=== PATIENT | female | born 1945 | race Caucasian/White ===

== ENCOUNTER → 2017-05-31 | Outpatient (CLI) | payer MEDICARE, OTHER ==
[~2017-05-31] MED LIST: ADULT LOW DOSE81 MG PO; AMLODIPINE BESY10 MG PO; ANXIETY; ASPIRIN325 PO; ATIVAN1 MG PO; AUGMENTIN 875875 MG PO; BISOPROLOL FUMA10 MG PO; BYSTOLIC 5 MG5 M1 PO; CARDIZEM30 MG PO; CHLORTHALIDONE25 MG PO; COLACE100 MG PO; COZAAR 50 MG TA50 M2 PO; DOXYCYCLINE 10100 MG PO; FENOFIBRATE160 MG PO; FLUZONE QU IM; GABAPENTIN 100100 MG PO; GENTAMICIN 0.1%15 G2 TOP; GLUCOPHAGE850 MG PO; GLUCOTROL5 MG PO; HYDRALAZINE 2525 MG PO; HYDROCODONE-AP1 EAC6 PO; KEFLEX500 MG PO; KLOR-CON 1010 MEQ PO; LEVOFLOXACIN750 MG PO; LEVOTHYROXIN0.025 MG PO; LIPITOR10 MG PO; LISINOPRIL10 MG PO; LOSARTAN POTAS100 MG PO; METFORMIN HCL500 MG PO; MILK OF MA2400 MG/10 PO; MIRALAX17 GM PO; MIRALAX255 GM PO; NITROFURANTOIN100 MG PO; NORCO 5-325 TA1 EACH PO; NORVASC10 MG PO; OXYBUTYNIN 5 MG5 M2 PO; OXYCODONE HCL 55 MG PO; SENNA LAX8.6 MG PO; SYNTHROID25 MC1 PO; TRIAMCINOLONE A80 G2 TOP; VANCOMYCIN HCL1 GM IV; VISTARIL 25 MG25 M1 PO; VITAMIN D50000 UNIT PO; XARELTO10 MG PO; XARELTO20 MG PO; ZOLOFT50 MG PO
== END ==
LOC: M.RAD 13:38
DX: Z12.31 Encounter for screening mammogram for malignant neoplasm of breast (principal)

== ENCOUNTER 2017-09-20 11:21 | Emergency (ER) | payer MEDICARE, OTHER ==
[~2017-09-20] VITALS: Ht 154.9 cm; Wt 98.9 kg
[~2017-09-20 11:21] MED LIST changes: -CHLORTHALIDONE25 MG PO; -GENTAMICIN 0.1%15 G2 TOP; -GLUCOPHAGE850 MG PO; -GLUCOTROL5 MG PO; -KLOR-CON 1010 MEQ PO; -TRIAMCINOLONE A80 G2 TOP
[2017-09-20 11:51] LABS: URINE BILIRUBIN NEGATIVE (Negative); URINE BLOOD NEGATIVE (Negative); URINE CLARITY CLEAR; URINE COLOR YELLOW; URINE GLUCOSE-RANDOM 3+ (Negative); URINE KETONES NEGATIVE (Negative); URINE LEUKOCYTES-REFLEX NEGATIVE (Negative); URINE PROTEIN NEGATIVE (Negative); URINE UROBILINOGEN 0.2 E.U./dl (0.2-1.0)
[2017-09-20 11:52] LABS: URINE NITRITE-REFLEX POSITIVE (Negative)
[2017-09-20 11:53] LABS: ABSOLUTE BASOPHILS 0.2 thou/uL (0.0-0.2); ABSOLUTE EOSINOPHILS 0.1 thou/uL (0.0-0.7); ABSOLUTE LYMPHOCYTES 1.9 thou/uL (0.8-5.3); ABSOLUTE MONOCYTES 0.6 thou/uL (0.0-1.2); ABSOLUTE NEUTROPHILS 8.4 thou/uL (1.6-8.1); BASOPHILS 1.4 %; EOSINOPHILS 0.8 %; HEMATOCRIT 46.7 % (37.0-47.0); HEMOGLOBIN 15.4 gm/dL (12.0-15.0); LYMPHOCYTES 17.1 %; MCH 29.3 pg (26.0-34.0); MCV 88.7 fL (80.0-100.0); MONOCYTES 5.2 %; MPV 10.3 fl. (7.2-11.1); NUCLEATED RBCS 0 /100WBC; PLATELET COUNT* 271 thou/uL (150-400); POLYS 75.5 %; RBC 5.27 mil/uL (4.20-5.00); RDW-CV 13.8 % (10.5-14.5); WBC 11.1 thou/uL (4.0-11.0)
[2017-09-20 11:56] LABS: CASTS None Seen /LPF (None Seen); CRYSTALS None Seen /LPF (None Seen); MUCUS 0-3 Light strn/LPF (None Seen); SQUAMOUS 0-3 Few /LPF (0-3); URINE RBC 0-2 Rare /HPF (0-2); URINE WBC-REFLEX 6-15 Few /HPF (0-5)
[2017-09-20 12:12] LABS: APTT 32.9 Seconds (25.0-31.3); INR 1.3; PROTIME 12.3 Seconds (9.20-11.50)
[2017-09-20 12:15] LABS: CALCIUM 9.1 mg/dL (8.5-10.1); CREATININE 1.9 mg/dL (0.6-1.3); POTASSIUM 3.7 mmol/L (3.5-5.1)
[2017-09-20 12:30] LABS: TOTAL BILIRUBIN 0.8 mg/dL (<0.1-1.0)
[2017-09-20 12:31] LABS: TOTAL PROTEIN 7.4 g/dL (6.4-8.2)
[2017-09-20] MEDS ORDERED: GLUCOPHAGE850 MG PO (13:28)
[2017-09-20] MEDS ORDERED: GLUCOTROL5 MG PO (13:28)
[2017-09-20 14:13] VITALS: BP 121/73
--- NOTE | 2017-09-20 15:22 | EKG ---
[place] [address] ELECTROCARDIOGRAM REPORT Name: ANGIE MARROQUIN Room: [facility]#: [id number] Admission: 09/20/17 Attend Phys: Discharge: 09/20/17 Date of : 47 Report #: [id number] THIS REPORT FOR: //name// [facility] ED Test Date: 2017-09-20 Test Time: 11:49:52 Pat Name: ANGIE MARROQUIN Department: Room: Gender: F Managed Care Specialist: Lindsay FELDER : 1945 Requested By: Cristobal Lew Order Number: [id number] MD: Ryan Coto Measurements Intervals [place] Rate: 61 P: 0 ND: 184 QRS: 73 QRSD: 157 T: 198 QT: 463 QTc: 467 Interpretive Statements Ventricular-paced complexes No further analysis attempted due to paced rhythm Baseline wander in lead(s) V6 Electronically Signed On 09-20-2017 15:21:49 CDT by Ryan Coto [email or web address] <ELECTRONICALLY SIGNED> By: Ryan Coto MD, [facility] 09/20/17 1521 1149 1149 Ryan Coto MD, [facility] /EPI
== END 2017-09-20 14:14 | disposition home or self-care (01) ==
LOC: M.ERS 11:21
PROVIDERS: Family Medicine
DX: E11.65 Type 2 diabetes mellitus with hyperglycemia (principal); I10 Essential (primary) hypertension; Z96.651 Presence of right artificial knee joint; Z90.710 Acquired absence of both cervix and uterus; Z90.49 Acquired absence of other specified parts of digestive tract; Z85.51 Personal history of malignant neoplasm of bladder; Z91.041 Radiographic dye allergy status

== ENCOUNTER 2018-02-16 13:54 | Inpatient (IN) | payer MEDICARE, OTHER ==
[~2018-02-16] VITALS: Ht 157.5 cm; Wt 97.5 kg
[~2018-02-16 13:54] MED LIST changes: +GLUCOPHAGE850 MG PO; +GLUCOTROL5 MG PO
[2018-02-16 14:04] VITALS: BP 150/83
[2018-02-16 14:45] LABS: ABSOLUTE BASOPHILS 0.1 thou/uL (0.0-0.2); ABSOLUTE EOSINOPHILS 0.2 thou/uL (0.0-0.7); ABSOLUTE LYMPHOCYTES 2.9 thou/uL (0.8-5.3); ABSOLUTE MONOCYTES 0.8 thou/uL (0.0-1.2); ABSOLUTE NEUTROPHILS 8.3 thou/uL (1.6-8.1); BASOPHILS 1.2 %; EOSINOPHILS 1.4 %; HEMATOCRIT 45.5 % (37.0-47.0); HEMOGLOBIN 14.8 gm/dL (12.0-15.0); LYMPHOCYTES 23.7 %; MCH 27.9 pg (26.0-34.0); MCHC 32.5 g/dL (28.0-37.0); MCV 85.9 fL (80.0-100.0); MONOCYTES 6.6 %; MPV 9.1 fl. (7.2-11.1); NUCLEATED RBCS 0 /100WBC; PLATELET COUNT* 316 thou/uL (150-400); POLYS 67.1 %; RDW-CV 14.8 % (10.5-14.5); WBC 12.4 thou/uL (4.0-11.0)
[2018-02-16 14:54] LABS: ANION GAP 10 mmol/L (7-16); BUN 31 mg/dL (7-18); CALCIUM 9.5 mg/dL (8.5-10.1); CHLORIDE 103 mmol/L (98-107); CO2 26 mmol/L (21-32); CREATININE 1.2 mg/dL (0.6-1.3); GLUCOSE 108 mg/dL (70-99); POTASSIUM 3.8 mmol/L (3.5-5.1); SODIUM 139 mmol/L (136-145)
[2018-02-16 14:57] LABS: APTT 33.8 Seconds (25.0-31.3); INR 1.2; PROTIME 12.2 Seconds (9.20-11.50)
[2018-02-16 15:07] LABS: URINE BILIRUBIN NEGATIVE (Negative); URINE BLOOD NEGATIVE (Negative); URINE CLARITY CLEAR; URINE COLOR YELLOW; URINE GLUCOSE-RANDOM NEGATIVE (Negative); URINE KETONES NEGATIVE (Negative); URINE LEUKOCYTES-REFLEX 1+ (Negative); URINE NITRITE-REFLEX POSITIVE (Negative); URINE PROTEIN TRACE (Negative); URINE UROBILINOGEN 0.2 E.U./dl (0.2-1.0)
[2018-02-16 15:13] LABS: ALBUMIN 3.7 g/dL (3.4-5.0); ALKALINE PHOSPHATASE 74 U/L (46-116); CK-MB MASS 1.8 ng/mL (<0.5-3.6); NT-PRO BRAIN NAT PEPTIDE 1296 pg/mL (<300); SGOT 16 U/L (15-37); SGPT 15 U/L (30-65); TOTAL BILIRUBIN 0.6 mg/dL (<0.1-1.0); TOTAL PROTEIN 8.5 g/dL (6.4-8.2); TROPONIN-I LEVEL <0.06 ng/mL (<0.06)
[2018-02-16 15:15] LABS: BACTERIA-REFLEX >30 Many /HPF (None Seen); SQUAMOUS 4-10 Moderate /LPF (0-3); URINE RBC None Seen /HPF (0-2); URINE WBC-REFLEX 6-15 Few /HPF (0-5)
[2018-02-16 15:16] LABS: CASTS None Seen /LPF (None Seen); CRYSTALS None Seen /LPF (None Seen); MUCUS None Seen strn/LPF (None Seen)
--- NOTE | 2018-02-16 16:36 | EKG ---
[place] [address] ELECTROCARDIOGRAM REPORT Name: LOPEZANGIE Gonzalez Room: [place] [address] ADM IN [facility].#: [id number] Admission: 02/16/18 Attend Phys: Perez White MD Discharge: Date of : 47 Report #: [id number] THIS REPORT FOR: //name// [facility] ED Test Date: 2018-02-16 Test Time: 14:35:11 Pat Name: ANGIE MARROQUIN Department: Room: [facility] Gender: F Supervisory Investigative Specialist: : 1945 Requested By: Cristobal Lew Order Number: [id number] MD: Ryan Coto Measurements Intervals [place] Rate: 60 P: 0 CA: 161 QRS: 74 QRSD: 146 T: 121 QT: 519 QTc: 519 Interpretive Statements Ventricular-paced complexes No further analysis attempted due to paced rhythm Baseline wander in lead(s) I,II,aVR Compared to ECG 09/20/2017 11:49:52 No significant changes Electronically Signed On 02-16-2018 16:36:37 CDT by Ryan Coto [email or web address] <ELECTRONICALLY SIGNED> By: Ryan Coto MD, [facility] 02/16/18 1636 1435 1435 Ryan Ctoo MD, [facility] /EPI
--- NOTE | 2018-02-16 17:00 | NUR ---
PT TO CT
[2018-02-16 17:53] VITALS: BP 174/77
[2018-02-16 20:15] VITALS: BP 117/61
[2018-02-16] MEDS ORDERED: GENTAMICIN 0.1%15 G2 TOP (20:29)
[2018-02-16] MEDS ORDERED: METFORMIN HCL500 MG PO (20:45)
[2018-02-16] MEDS ORDERED: KLOR-CON 1010 MEQ PO (20:46)
[2018-02-16] MEDS ORDERED: OXYBUTYNIN 5 MG5 M2 PO (20:47)
[2018-02-16] MEDS ORDERED: CHLORTHALIDONE25 MG PO (20:48)
[2018-02-16] MEDS ORDERED: TRIAMCINOLONE A80 G2 TOP (20:49)
[2018-02-17] VITALS (7 sets, daily range): BP systolic 127–158; BP diastolic 62–78
[2018-02-17 05:05] LABS: ABSOLUTE BASOPHILS 0.1 thou/uL (0.0-0.2); ABSOLUTE EOSINOPHILS 0.2 thou/uL (0.0-0.7); ABSOLUTE LYMPHOCYTES 2.6 thou/uL (0.8-5.3); ABSOLUTE MONOCYTES 0.8 thou/uL (0.0-1.2); ABSOLUTE NEUTROPHILS 5.7 thou/uL (1.6-8.1); BASOPHILS 0.7 %; EOSINOPHILS 2.4 %; HEMATOCRIT 44.8 % (37.0-47.0); HEMOGLOBIN 14.3 gm/dL (12.0-15.0); LYMPHOCYTES 27.6 %; MCV 87.6 fL (80.0-100.0); MONOCYTES 8.5 %; MPV 9.8 fl. (7.2-11.1); NUCLEATED RBCS 0 /100WBC; PLATELET COUNT* 251 thou/uL (150-400); POLYS 60.8 %; RBC 5.12 mil/uL (4.20-5.00); RDW-CV 14.8 % (10.5-14.5); WBC 9.4 thou/uL (4.0-11.0)
[2018-02-17 05:49] LABS: CALCIUM 9.1 mg/dL (8.5-10.1); POTASSIUM 3.9 mmol/L (3.5-5.1)
--- NOTE | 2018-02-17 05:55 | NUR ---
PT IS ABLE TO COMMUNICATE HER NEEDS TO STAFF EFFECTIVELY. SHE HAS DENIED THE NEED FOR PAIN MEDICATION UP TO THIS TIME. SHE HAS BEEN USING THE BEDPAN DURING THIS SHIFT, UP TO THIS TIME. PT FRUSTRATED WITH FREQUENT UTIs SHE'S BEEN HAVING.
--- NOTE | 2018-02-17 10:38 | NUR ---
ASSUMED PT CARE AT 0700 PT IS ALERT AND ORIENTED X 3-4 PT HAS PERIODS OF CONFUSION THIS NURSE HAD TO REEDUCATE PT MULTIPLE TIMES REGARDING ANTIBIOTICS, VITALS SIGNS, AND BREAKFAST TIME, PT KEPT STATING SHE WAS TOLD TO WRITE STUFF DOWN PT WAS UPSET COULDN'T FIND TV REMOTE THIS NURSE EDUCATED PT REGARDING CALL LIGHT WHICH ALSO FUNCTIONS TV REMOTE PT WAS CALM AFTER, PT CONCERNED REGARDING HER DIABETES AND MEDICATIONS FOR DIABETES THIS NURSE EDUCATED PT THAT THIS NURSE WOULD PAGE PHYSICIAN TO RESTART HER MEDICATION AND THAT BREAKFAST IS SERVED BETWEEN 0800 AND 0830 PT STATED UNDERSTANING, PT IS NEEDY AUTOMOBILE [employer]CH[employer]IC LIGHT FREQUENTLY, PT IS UP WITH ASSIST X 1 TO CHAIR AND BEDSIDE COMMODE PT IS A FALL RISK BED ALARM IS ON, PT IS VPACED ON THE MONITOR, PT RECEIVED ANTIBIOTICS, THIS NURSE PAGED PHYSICIAN FOR HOME MEDICATIONS TO BE RESTARED PHYSICIAN REORDERED HOME MEDS, WILL CONTINUE TO MONITOR
[2018-02-18 03:55] VITALS: BP 150/60
[2018-02-18 05:07] LABS: ABSOLUTE EOSINOPHILS 0.2 thou/uL (0.0-0.7); ABSOLUTE LYMPHOCYTES 2.3 thou/uL (0.8-5.3); ABSOLUTE MONOCYTES 0.6 thou/uL (0.0-1.2); ABSOLUTE NEUTROPHILS 8.3 thou/uL (1.6-8.1); BASOPHILS 0.4 %; EOSINOPHILS 1.9 %; HEMATOCRIT 43.7 % (37.0-47.0); LYMPHOCYTES 20.4 %; MCH 27.8 pg (26.0-34.0); MCHC 32.1 g/dL (28.0-37.0); MCV 86.5 fL (80.0-100.0); MONOCYTES 5.4 %; MPV 9.3 fl. (7.2-11.1); NUCLEATED RBCS 0 /100WBC; PLATELET COUNT* 306 thou/uL (150-400); POLYS 71.9 %; RBC 5.05 mil/uL (4.20-5.00); RDW-CV 14.8 % (10.5-14.5); WBC 11.5 thou/uL (4.0-11.0)
[2018-02-18 05:43] LABS: ALBUMIN 3.2 g/dL (3.4-5.0); CREATININE 1.2 mg/dL (0.6-1.3); POTASSIUM 3.3 mmol/L (3.5-5.1); TOTAL BILIRUBIN 0.4 mg/dL (<0.1-1.0); TOTAL PROTEIN 7.6 g/dL (6.4-8.2)
--- NOTE | 2018-02-18 05:51 | NUR ---
PT IS ABLE TO COMMUNICATE HER NEEDS TO STAFF WITH MINOR DIFFICULTY; SHE IS FORGETFUL AT TIMES. SHE HAS DENIED THE NEED FOR PAIN MEDICATION UP TO THIS TIME. HER EMOTIONAL STATE IS PRONE TO FREQUENT CHANGES; SHE MAY BE HAPPY ONE MINUTE, BUT CRYING THE NEXT ETC. SHE TALKS A LOT, EVEN WHEN THERE IS NOT ANOTHER PERSON IN THE ROOM. SHE CAN BECOME UPSET AND BECOME MANIPULATIVE WHEN STAFF IS LEAVING HER ROOM.
--- NOTE | 2018-02-18 11:04 | NUR ---
ASSUMED PT CARE AT 0700 PT IS ALERT AND ORIENTED X 4 PT IS UP WITH SBA PT IS A FALL RISK REFUSES TO CALL FOR ASSISTANCE, PT IS INAPPROPRIATE WITH THE STAFF YELLING AT STAFF PT STATES TO THIS NURSE " I CAN YELL AT YOU IF I WANT YOU ARE GETTING PAID" THIS NURSE EDUCATED PT ON INAPPRORIATE BEHAVIOR THAT WAS UNEXCEPTABLE TO YELL AND SCREAM AT STAFF, THIS NURSE EDUCATED PT ON ELEVATED BLOOD PRESSURE AND THAT PT WAS RECEIVING BLOOD PRESSURE MEDS THIS AM PT BECAME AGITATED AND HOSTILE, NURSE EDUCATED PT ON THE IMPORTANCE OF RECEIVING ANTIBIOTICS PT SCREAMING AT NURSE PT IV REPALCED THIS NURSE CALLED PHYSICIAN WITH SITUATION PHYSICIAN GAVE ORDER FOR ONETIME DOSE OF [facility] IS BRINGING TO UNIT, NEW IV INFILTRATED PT IS REFUSING ANOTHER IV OR IV ANTIBIOTICS STATES " I AM THE PT AND I HAVE THAT RIGHT" WILL CONTINUE TO MONITOR
[2018-02-18 11:21] VITALS: BP 170/75
== END 2018-02-18 14:00 | disposition left against medical advice (07) | DRG 70 ==
LOC: M.ERS 13:54 → M.TBA-ER 16:16 → M.2W 16:16
PROVIDERS: Family Medicine; ADMIT Internal Medicine
DX: G93.40 Encephalopathy, unspecified (principal); R65.11 Systemic inflammatory response syndrome (SIRS) of non-infectious origin with acute organ dysfunction; N39.0 Urinary tract infection, site not specified; I50.32 Chronic diastolic (congestive) heart failure; I11.0 Hypertensive heart disease with heart failure; E11.9 Type 2 diabetes mellitus without complications; M19.90 Unspecified osteoarthritis, unspecified site; Z53.21 Procedure and treatment not carried out due to patient leaving prior to being seen by health care provider; Z85.51 Personal history of malignant neoplasm of bladder; Z90.710 Acquired absence of both cervix and uterus; Z90.49 Acquired absence of other specified parts of digestive tract; Z95.0 Presence of cardiac pacemaker; Z91.041 Radiographic dye allergy status; Z79.01 Long term (current) use of anticoagulants; Z79.899 Other long term (current) drug therapy; Z28.21 Immunization not carried out because of patient refusal

== ENCOUNTER → 2018-06-12 | Outpatient (CLI) | payer MEDICARE, OTHER ==
[~2018-06-12] MED LIST changes: +CHLORTHALIDONE25 MG PO; +GENTAMICIN 0.1%15 G2 TOP; +KLOR-CON 1010 MEQ PO; +TRIAMCINOLONE A80 G2 TOP
== END ==
LOC: M.RAD 15:19
DX: Z12.31 Encounter for screening mammogram for malignant neoplasm of breast (principal)

== ENCOUNTER → 2019-10-23 | Outpatient (CLI) | payer MEDICARE, OTHER | LOC: M.RAD 09:04 | PROVIDERS: ATTEND Internal Medicine Hematology & Oncology | DX: Z12.31 Encounter for screening mammogram for malignant neoplasm of breast (principal) ==

== ENCOUNTER 2020-07-12 20:33 | Inpatient (IN) | payer MEDICARE, OTHER ==
[~2020-07-12] VITALS: Ht 157.5 cm; Wt 96.2 kg
[2020-07-12 20:49] VITALS: BP 144/76
[2020-07-12] MEDS ORDERED: PREDNISONE PO (21:20)
[2020-07-12 22:45] LABS: HEMATOCRIT 46.8 % (37.0-47.0); HEMOGLOBIN 15.2 gm/dL (12.0-15.0); MCH 27.2 pg (26.0-34.0); MCHC 32.4 g/dL (28.0-37.0); MCV 83.9 fL (80.0-100.0); NUCLEATED RBCS 0 /100WBC; PLATELET COUNT* 344 thou/uL (150-400); RBC 5.58 mil/uL (4.20-5.00); RDW-CV 15.7 % (10.5-14.5); WBC 26.1 thou/uL (4.0-11.0)
[2020-07-12 22:53] LABS: INR 1.7; PROTIME 17.5 Seconds (9.20-11.50)
[2020-07-12 22:57] LABS: URINE BILIRUBIN NEGATIVE (Negative); URINE BLOOD NEGATIVE (Negative); URINE CLARITY CLEAR; URINE COLOR YELLOW; URINE GLUCOSE-RANDOM TRACE (Negative); URINE KETONES NEGATIVE (Negative); URINE LEUKOCYTES-REFLEX TRACE (Negative); URINE NITRITE-REFLEX POSITIVE (Negative); URINE PROTEIN TRACE (Negative); URINE SPECIFIC GRAVITY 1.025 (1.005-1.030); URINE UROBILINOGEN 0.2 E.U./dl (0.2-1.0)
[2020-07-12 23:00] LABS: BACTERIA-REFLEX >30 Many /HPF (None Seen); CRYSTALS None Seen /LPF (None Seen); HYALINE CASTS 0-3 Few /LPF (None Seen); MUCUS None Seen strn/LPF (None Seen); SQUAMOUS >10 Many /LPF (0-3)
[2020-07-12 23:01] LABS: URINE RBC None Seen /HPF (0-2); WBC CLUMPS Few (None Seen)
[2020-07-12 23:05] LABS: CALCIUM 10.2 mg/dL (8.5-10.1); CREATININE 1.5 mg/dL (0.6-1.3); POTASSIUM 3.5 mmol/L (3.5-5.1)
[2020-07-12 23:10] LABS: ALBUMIN 3.3 g/dL (3.4-5.0); MAGNESIUM 1.9 mg/dL (1.8-2.4); TOTAL PROTEIN 6.9 g/dL (6.4-8.2)
[2020-07-12 23:57] LABS: ABSOLUTE LYMPHOCYTES 3.1 thou/uL (0.8-5.3)
[2020-07-12 23:59] LABS: PLATELET ESTIMATE ADEQUATE
[2020-07-13] VITALS (7 sets, daily range): BP systolic 106–151; BP diastolic 52–83
[2020-07-13 08:18] LABS: ABSOLUTE BASOPHILS 0.1 thou/uL (0.0-0.2); ABSOLUTE EOSINOPHILS 0.1 thou/uL (0.0-0.7); ABSOLUTE LYMPHOCYTES 2.2 thou/uL (0.8-5.3); ABSOLUTE NEUTROPHILS 14.4 thou/uL (1.6-8.1); BASOPHILS 0.7 %; EOSINOPHILS 0.4 %; HEMATOCRIT 39.9 % (37.0-47.0); LYMPHOCYTES 12.2 %; MCHC 32.2 g/dL (28.0-37.0); MONOCYTES 5.5 %; MPV 8.9 fl. (7.2-11.1); NUCLEATED RBCS 0 /100WBC; PLATELET COUNT* 277 thou/uL (150-400); POLYS 81.2 %; RBC 4.75 mil/uL (4.20-5.00); RDW-CV 15.7 % (10.5-14.5); WBC 17.8 thou/uL (4.0-11.0)
[2020-07-13 08:20] LABS: HEMOGLOBIN 12.9 gm/dL (12.0-15.0)
[2020-07-13 08:27] LABS: CALCIUM 8.9 mg/dL (8.5-10.1); CREATININE 1.2 mg/dL (0.6-1.3); POTASSIUM 3.4 mmol/L (3.5-5.1)
--- NOTE | 2020-07-13 11:12 | EKG ---
[place] [address] ELECTROCARDIOGRAM REPORT Name: NAHUN MARROQUINANETTE Carlos Room: [address] ADM IN [facility]#: [id number] Admission: 07/12/20 Attend Phys: Jeanette Montanez, Discharge: Date of : 47 Date of Service: 07/12/202105 Report #: [id number] THIS REPORT FOR: //name// [facility] ED Test Date: 2020-07-12 Test Time: 21:06:16 Pat Name: ANGIE MARROQUIN Department: Room: [facility] Gender: F Splitter Machine: [place] : 1945 Requested By: Dodie Sy Order Number: [id number] MD: Justin Gallegos Measurements Intervals [place] Rate: 63 P: [place]: QRS: 104 QRSD: 144 T: 218 QT: 437 QTc: 448 Interpretive Statements Afib/flut and V-paced complexes No further analysis attempted due to paced rhythm Compared to ECG 02/16/2018 14:35:11 No significant changes Electronically Signed On 07-13-2020 11:12:46 HUNTER by Justin Gallegos [email or web address] <ELECTRONICALLY SIGNED> By: Justin Gallegos MD, FACC 07/13/20 1112 05 05 Justin Gallegos MD, FAC /EPI
--- NOTE | 2020-07-13 11:38 | 2DMMODE ---
[place] [address] 2 D/M-MODE ECHOCARDIOGRAM Name: ANGIE MARROQUIN Carlos Room: [address] ADM IN [facility]#: [id number] Admission: 07/12/20 Attend Phys: Jeanette Montanez, Discharge: Date of : 47 Date of Service: 07/13/20 1138 Report #: [id number] THIS REPORT FOR: cc: Julien Gil Bruce R. DO Blick,Justin Watts MD [facility] ~ APPROVED REPORT Study performed: 07/13/2020 09:28:40 EXAM: Comprehensive 2D, Doppler, and color-flow Echocardiogram Patient Location: In-Patient Room #: [facility] Status: routine BSA: 1.93 HR: 61 bpm BP: 124/55 mmHg Rhythm: NSR Other Information Study Quality: Good Indications Sepsis Cardiomegaly 2D Dimensions IVSd: 13.44 (7-11mm) LVOT Diam: 20.26 (18-24mm) LVDd: 47.33 mm PWd: 12.34 (7-11mm) Ascending Ao: 30.36 (22-36mm) LVDs: 27.83 (25-40mm) Aortic Root: 30.47 mm Volumes Left Atrial Volume (Systole) LA ESV Index: 64.00 mL/m2 Aortic Valve AoV Peak J Luis.: 1.43 m/s AO Peak Gr.: 8.18 mmHg LVOT Max P.90 mmHg AO Mean Gr.: 4.44 mmHg LVOT Mean P.26 mmHg LVOT Max V: 1.41 m/s AO V2 VTI: 26.43 cm LVOT Mean V: 0.97 m/s FLOYD (VTI): 3.23 cm2 LVOT V1 VTI: 26.46 [place] [address] 2 D/M-MODE ECHOCARDIOGRAM Name: ANGIE MARROQUIN Room: [address] IN ..#: [id number] Admission: 07/12/20 Attend Phys: Jeanette Montanez, Discharge: Date of : 47 Date of Service: 07/13/20 1138 Report #: [id number] Mitral Valve MV Decel. Time: 282.90 ms MV PHT: 82.04 ms MVA (PHT): 2.68 cm2 Pulmonary Valve PV Peak J Luis.: 1.09 m/s PV Peak Gr.: 4.73 mmHg Tricuspid Valve RAP Estimate: 5.00 mmHg TR Peak Gr.: 42.38 mmHg RVSP: 47.00 mmHg PA Pressure: 47.00 mmHg Left Ventricle The left ventricle is normal size. There is normal LV segmental wall motion. Mild concentric left ventricular hypertrophy. Left ventricular systolic function is normal. The left ventricular ejection fraction is within the normal range. LVEF is 55-60%. Right Ventricle The right ventricle is normal size. The right ventricular systolic function is normal. Pacemaker lead is present in the right ventricle. Atria Left atrium is severely dilated. The right atrium size is normal. Aortic Valve The aortic valve is normal in structure. No aortic regurgitation is present. There is no aortic valvular stenosis. Mitral Valve There is mitral annular calcification. The mitral valve is normal in structure. Mild mitral regurgitation. No evidence of mitral valve stenosis. Tricuspid Valve The tricuspid valve is normal in structure. Mild tricuspid regurgitation. estimated pa pressure 55 mm Hg Pulmonic Valve The pulmonary valve is normal in structure. There is no pulmonic valvular regurgitation[place] [address] 2 D/M-MODE ECHOCARDIOGRAM Name: ANGIE MARROQUIN Carlos Room: [address] IN [facility]#: [id number] Admission: 07/12/20 Attend Phys: Jeanette Montanez, Discharge: Date of : 47 Date of Service: 07/13/20 1138 Report #: [id number] The aortic root is normal in size. IVC is not well visualized. Pericardium There is no pericardial effusion. <Conclusion> Normal echocardiogram. LVEF is 55-60%. Mild concentric left ventricular hypertrophy. Left atrium is severely dilated. Mild mitral regurgitation. Mild tricuspid regurgitation. estimated pa pressure 55 mm Hg <ELECTRONICALLY SIGNED> By: Justin Gallegos MD, FACC 07/13/20 1138 1138 1138 Justin Gallegos MD, FAC /INF
[2020-07-14 04:12] VITALS: BP 102/82
[2020-07-14 04:49] LABS: HEMOGLOBIN 12.1 gm/dL (12.0-15.0); MCH 27.3 pg (26.0-34.0); MCHC 32.5 g/dL (28.0-37.0); MCV 83.8 fL (80.0-100.0); MPV 9.1 fl. (7.2-11.1); RBC 4.42 mil/uL (4.20-5.00); RDW-CV 15.6 % (10.5-14.5); WBC 15.1 thou/uL (4.0-11.0)
[2020-07-14 04:58] LABS: ALBUMIN 2.3 g/dL (3.4-5.0); CALCIUM 8.5 mg/dL (8.5-10.1); CREATININE 1.2 mg/dL (0.6-1.3); MAGNESIUM 1.6 mg/dL (1.8-2.4); POTASSIUM 3.5 mmol/L (3.5-5.1); TOTAL BILIRUBIN 0.7 mg/dL (<0.1-1.0); TOTAL PROTEIN 6.1 g/dL (6.4-8.2)
[2020-07-14 08:43] VITALS: BP 149/59
[2020-07-14 11:10] VITALS: BP 97/73
[2020-07-14 16:13] VITALS: BP 137/66
[2020-07-14 19:40] VITALS: BP 140/66
[2020-07-15 01:38] VITALS: BP 131/62
[2020-07-15 05:36] LABS: CALCIUM 8.7 mg/dL (8.5-10.1); MAGNESIUM 1.6 mg/dL (1.8-2.4); POTASSIUM 4.1 mmol/L (3.5-5.1)
[2020-07-15 05:51] VITALS: BP 128/64
[2020-07-15 08:00] VITALS: BP 123/69
[2020-07-15 12:00] VITALS: BP 147/74
[2020-07-15 17:02] VITALS: BP 153/69
[2020-07-15 20:00] VITALS: BP 148/67
[2020-07-16] VITALS: BP 154/77
[2020-07-16 04:00] VITALS: BP 141/61
[2020-07-16 08:16] VITALS: BP 158/90
[2020-07-16] MEDS ORDERED: KEFLEX500 M1 PO (09:34)
[2020-07-16] MEDS ORDERED: LACTOBACILLUS1 EACH PO (09:34)
[2020-07-16 12:27] VITALS: BP 145/76
[2020-07-16 15:12] VITALS: BP 145/76
== END 2020-07-16 16:20 | disposition home or self-care (01) | DRG 872 ==
LOC: M.ERS 20:33 → M.TBA-ER 23:08 → M.2W 23:08
PROVIDERS: Emergency Medicine; Internal Medicine; ADMIT Internal Medicine; ATTEND Internal Medicine
DX: A41.51 Sepsis due to Escherichia coli [E. coli] (principal); L03.113 Cellulitis of right upper limb; N30.01 Acute cystitis with hematuria; E44.1 Mild protein-calorie malnutrition; B96.89 Other specified bacterial agents as the cause of diseases classified elsewhere; D72.829 Elevated white blood cell count, unspecified; N18.30 Chronic kidney disease, stage 3 unspecified; I12.9 Hypertensive chronic kidney disease with stage 1 through stage 4 chronic kidney disease, or unspecified chronic kidney disease; E11.22 Type 2 diabetes mellitus with diabetic chronic kidney disease; I89.0 Lymphedema, not elsewhere classified; Z85.51 Personal history of malignant neoplasm of bladder; Z90.710 Acquired absence of both cervix and uterus; Z90.49 Acquired absence of other specified parts of digestive tract; Z95.0 Presence of cardiac pacemaker; Z91.041 Radiographic dye allergy status; Z68.38 Body mass index [BMI] 38.0-38.9, adult; Z20.822 Contact with and (suspected) exposure to COVID-19

== ENCOUNTER 2020-07-20 01:30 | Emergency (ER) | payer MEDICARE, OTHER ==
[~2020-07-20] VITALS: Ht 157.5 cm; Wt 94.3 kg
[~2020-07-20 01:30] MED LIST changes: +KEFLEX500 M1 PO; +LACTOBACILLUS1 EACH PO; +PREDNISONE PO
[2020-07-20] MEDS ORDERED: ULTRAM 50MG TAB50 MG PO (03:08)
[2020-07-20] MEDS ORDERED: OTHER MISCELL (03:10)
[2020-07-20 03:20] VITALS: BP 161/78
== END 2020-07-20 03:29 | disposition home or self-care (01) ==
LOC: M.ERS 01:30
DX: M54.5 Low back pain (principal); I13.10 Hypertensive heart and chronic kidney disease without heart failure, with stage 1 through stage 4 chronic kidney disease, or unspecified chronic kidney disease; E11.22 Type 2 diabetes mellitus with diabetic chronic kidney disease; N18.30 Chronic kidney disease, stage 3 unspecified; Z85.51 Personal history of malignant neoplasm of bladder; Z90.710 Acquired absence of both cervix and uterus; Z98.890 Other specified postprocedural states; Z90.49 Acquired absence of other specified parts of digestive tract; Z96.651 Presence of right artificial knee joint; Z91.041 Radiographic dye allergy status; W18.39XA Other fall on same level, initial encounter; Y93.89 Activity, other specified; Y92.89 Other specified places as the place of occurrence of the external cause; Y99.8 Other external cause status

== ENCOUNTER → 2020-10-26 | Outpatient (CLI) | payer MEDICARE, OTHER ==
[~2020-10-26] MED LIST changes: +OTHER MISCELL; +ULTRAM 50MG TAB50 MG PO
== END ==
LOC: M.RAD 08:16
PROVIDERS: ATTEND Nurse Practitioner Family
DX: Z12.31 Encounter for screening mammogram for malignant neoplasm of breast (principal); N64.89 Other specified disorders of breast